=== PATIENT | female | born 1985 | race Caucasian/White ===

== ENCOUNTER 2016-08-01 05:51 | Inpatient (IN) | payer OTHER ==
[~2016-08-01] VITALS: Ht 165.1 cm; Wt 112.5 kg
[2016-08-01 06:02] VITALS: BP 135/96
--- NOTE | 2016-08-01 06:09 | Emergency Room Report ---
History of Present Illness General Chief Complaint: Chest Pain Source: Patient, EMS (RUBY JAVIER M.D.) Present Illness HPI This is a 31-year-old female with history of lupus and previous DVTs. She also has factor V Leiden deficiency. She presents with chief complaint of chest pain. Onset tonight. Also has short of breath. Denies any fever chills denies any nausea vomiting. She did have flulike illness about a week ago. It has some vomiting then. Pain is 10 out of 10. No radiation. No diaphoresis. She called 911 this given aspirin and nitroglycerin by EMS. No relief. She does take Lovenox when necessary when she traveled or when she has confirmed DVTs. (RUBY JAVIER M.D.) Allergies: Coded Allergies: METRONIDAZOLE (Verified Allergy, Unknown, 08/01/16) Uncoded Allergies: ALL ANTI VIRAL (Allergy, Unknown, 08/01/16) Patient History Past Medical History: see triage record, old chart reviewed Past Surgical History: other Pertinent Family History: none Social History: Denies: smoking Last Menstrual Period: 2 weeks ago Now: No Immunizations: other Reviewed Nursing Documentation: PMH: Agreed, PSxH: Agreed (RUBY JAVIER M.D.) Review of Systems Eye: Denies: blurred vision, eye pain ENT: Denies: ear pain, nose congestion, throat swelling Respiratory: Reports: shortness of breath, Denies: cough Cardiovascular: Reports: chest pain, Denies: palpitations Gastrointestinal: Denies: abdominal pain, diarrhea, nausea, vomiting Musculoskeletal: Denies: back pain, joint pain Skin: Denies: rash Neurological: Denies: headache, numbness Endocrine: Denies: increased thirst, increased urine Hematologic/Lymphatic: Denies: easy bruising All Other Systems: negative except mentioned in HPI (RUBY JAVIER M.D.) Physical Exam Vital Signs Date Time Temp Pulse Resp B/P Pulse Ox O2 Delivery O2 Flow Rate FiO2 08/01/16 05:52 97.5 93 16 135/96 100 Room Air vitals normal Sp02 EP Interpretation: reviewed, normal General Appearance: well appearing, no apparent distress, alert, obese Head: normocephalic, atraumatic Eyes: bilateral eye EOMI, bilateral eye PERRL ENT: hearing grossly normal, normal pharynx Neck: full range of motion, supple, no meningismus Respiratory: chest non-tender, lungs clear, normal breath sounds Cardiovascular #1: regular rate, rhythm, no murmur Gastrointestinal: normal bowel sounds, non tender, no mass, no organomegaly, no bruit, non-distended Musculoskeletal: back normal, gait/station normal, normal range of motion Neurologic: alert, oriented x3 Psychiatric: anxious Skin: warm/dry (RUBY JAVIER M.D.) Medical Decision Making Diagnostic Impression: Primary Impression: ACS (acute coronary syndrome) ER Course Patient presents with chest pain and shortness of breath. EKG is unremarkable. Because of her history of DVT and hypercoagulable state, will get a CT scan to rule out PE. I will sign this patient out to Dr. Kearney for final disposition. (RUBY JAVIER M.D.) ER Course Please refer to initial note for the history examined presentation Patient's complex with multiple differentials entertained Specifically given her lupus and, hypocoagulable state Consideration for vascular emergencies high CT chest was negative for pulmonary embolism Patient required morphine and Dilaudid for pain medication And at this time admitted for further inpatient care Labs Test 08/01/16 06:00 08/01/16 07:10 White Blood Count 7.4 K/UL (4.8-10.8) Red Blood Count 5.02 M/UL (4.20-5.40) Hemoglobin 13.6 G/DL (12.0-16.0) Hematocrit 42.1 % (37.0-47.0) Mean Corpuscular Volume 84 FL (80-99) Mean Corpuscular Hemoglobin 27.0 PG (27.0-31.0) Mean Corpuscular Hemoglobin Concent 32.2 G/DL (32.0-36.0) Red Cell Distribution Width 12.8 % (11.6-14.8) Platelet Count 256 K/UL (150-450) Mean Platelet Volume 6.5 FL (6.5-10.1) Neutrophils (%) (Auto) 55.3 % (45.0-75.0) Lymphocytes (%) (Auto) 33.5 % (20.0-45.0) Monocytes (%) (Auto) 4.5 % (1.0-10.0) Eosinophils (%) (Auto) 5.3 % (0.0-3.0) Basophils (%) (Auto) 1.5 % (0.0-2.0) Prothrombin Time 9.9 SEC (9.30-11.50) Prothromb Time International Ratio 1.0 (0.9-1.1) Activated Partial Thromboplast Time 26 SEC (23-33) Sodium Level 142 mEQ/L (135-145) Potassium Level 3.9 mEQ/L (3.4-4.9) Chloride Level 101 mEQ/L (98-107) Carbon Dioxide Level 26 mEQ/L (20-30) Anion Gap 15 (5-15) Blood Urea Nitrogen 14 mg/dL (7-23) Creatinine 0.8 mg/dL (0.5-0.9) Estimat Glomerular Filtration Rate > 60 mL/min (>60) Glucose Level 113 mg/dL (74-106) Calcium Level 8.9 mg/dL (8.6-10.2) Total Bilirubin 0.5 mg/dL (0.0-1.2) Aspartate Amino Transf (AST/SGOT) 30 U/L (5-40) Alanine Aminotransferase (ALT/SGPT) 25 U/L (3-33) Alkaline Phosphatase 71 U/L (35-104) Total Creatine Kinase 93 U/L (26-140) Creatine Kinase MB 1.8 ng/mL (< 3.8) Creatine Kinase MB Relative Index 1.9 Troponin I < 0.30 ng/mL (<=0.30) Total Protein 6.7 g/dL (6.6-8.7) Albumin 4.1 g/dL (3.5-5.2) Globulin 2.6 g/dL Albumin/Globulin Ratio 1.5 (1.0-2.7) Urine Color Pale yellow Urine Appearance Clear Urine pH 7 (4.5-8.0) Urine Specific [place] 1.005 (1.005-1.035) Urine Protein Negative (NEGATIVE) Urine Glucose (UA) Negative (NEGATIVE) Urine Ketones Negative (NEGATIVE) Urine Occult Blood Negative (NEGATIVE) Urine Nitrite Negative (NEGATIVE) Urine Bilirubin Negative (NEGATIVE) Urine Urobilinogen Normal MG/DL (0.0-1.0) Urine Leukocyte Esterase 1+ (NEGATIVE) Urine RBC 0-2 /HPF (0 - 2) Urine WBC 0-2 /HPF (0 - 2) Urine Squamous Epithelial Cells Occasional /LPF Urine Bacteria Occasional /HPF (NONE) Urine HCG, Qualitative Negative Urine Opiates Screen Negative (NEGATIVE) Urine Barbiturates Screen Negative (NEGATIVE) Phencyclidine (PCP) Screen Negative (NEGATIVE) Urine Amphetamines Screen Negative (NEGATIVE) Urine Benzodiazepines Screen Negative (NEGATIVE) Urine Cocaine Screen Negative (NEGATIVE) Urine Marijuana (THC) Screen Negative (NEGATIVE) (HAZEL KEARNEY.Diamond) EKG Diagnostic Results Rate: normal Rhythm: NSR ST Segments: no acute changes (RUBY JAVIER M.D.) Rate: normal Rhythm: NSR ST Segments: no acute changes (HAZEL KEARNEY D.O.) Rhythm Strip Diag. Results EP Interpretation: yes Rate: 90 Rhythm: NSR, no PVC's, no ectopy (RUBY JAVIER M.D.) EP Interpretation: yes Rate: 74 Rhythm: NSR, no PVC's, no ectopy (HAZEL KEARNEY D.O.) Chest X-Ray Diagnostic Results EP Interpretation: Yes Findings: no consolidation, no effusion, no pneumothorax, no acute cardiopulmonary disease Number of Views: 1 (RUBY JAVIER M.D.) EP Interpretation: Yes Findings: no consolidation, no effusion, no pneumothorax Number of Views: 1 (HAZEL KEARNEY D.O.) CT/MRI/US Diagnostic Results CT/MRI/US Diagnostic Results : Impression CTA chest: No acute disease (HAZEL KEARNEY.Diamond) Last Vital Signs Date Time Temp Pulse Resp B/P Pulse Ox O2 Delivery O2 Flow Rate FiO2 08/01/16 06:02 93 16 Room Air 08/01/16 06:02 97.5 135/96 100 Status: improved (RUBY JAVIER M.D.) Status: improved (HAZEL KEARNEY D.O.) Disposition: ADMITTED INPATIENT Condition: Serious RUBY JAVIER M.D. Aug 01, 2016 06:09 HAZEL KEARNEY D.O. Aug 01, 2016 08:00
[2016-08-01 06:16] LABS: BASOPHILS % (AUTO) 1.5 % (0.0-2.0); EOSINOPHILS % (AUTO) 5.3 % (0.0-3.0); LYMPHOCYTES % (AUTO) 33.5 % (20.0-45.0); MEAN CORPUSCULAR HGB CONC 32.2 G/DL (32.0-36.0); MEAN CORPUSCULAR VOLUME 84 FL (80-99); MEAN PLATELET VOLUME 6.5 FL (6.5-10.1); MONOCYTES % (AUTO) 4.5 % (1.0-10.0); NEUTROPHILS % (AUTO) 55.3 % (45.0-75.0); PLATELET COUNT 256 K/UL (150-450); RED BLOOD COUNT 5.02 M/UL (4.20-5.40); RED CELL DISTRIBUTION WIDTH 12.8 % (11.6-14.8); WHITE BLOOD COUNT 7.4 K/UL (4.8-10.8)
[2016-08-01] MEDS ORDERED: ALBUTEROL2.5 MG/3 M INH (06:17)
[2016-08-01] MEDS ORDERED: TRAMADOL HCL50 MG ORAL (06:17)
[2016-08-01] MEDS ORDERED: ZOFRAN4 M3 ORAL (06:17)
[2016-08-01] MEDS ORDERED: FOLIC ACID1 MG ORAL (06:17)
[2016-08-01] MEDS ORDERED: PLAQUENIL200 MG ORAL (06:17)
[2016-08-01] MEDS ORDERED: CYANOCOBAL1000 MCG/2 IM (06:17)
[2016-08-01] MEDS ORDERED: LAMICTAL25 MG ORAL (06:17)
[2016-08-01] MEDS ORDERED: METHOTREXATE2.5 MG PO (06:17)
[2016-08-01] MEDS ORDERED: ATIVAN0.5 MG ORAL (06:18)
[2016-08-01] MEDS ORDERED: FIORINAL 50-321 EACH PO (06:18)
[2016-08-01 06:33] LABS: PROTHROMBIN TIME 9.9 SEC (9.30-11.50)
[2016-08-01 06:41] LABS: ALANINE AMINOTRANSFERASE 25 U/L (3-33); ALBUMIN/GLOBULIN RATIO 1.5 (1.0-2.7); ANION GAP 15 (5-15); ASPARTATE AMINO TRANSFERASE 30 U/L (5-40); CALCIUM 8.9 mg/dL (8.6-10.2); CARBON DIOXIDE 26 mEQ/L (20-30); CHLORIDE 101 mEQ/L (98-107); CREATININE 0.8 mg/dL (0.5-0.9); GLOMERULAR FILTRATION RATE > 60 mL/min (>60); HEMOLYSIS 11; POTASSIUM 3.9 mEQ/L (3.4-4.9); SODIUM 142 mEQ/L (135-145); TOTAL PROTEIN 6.7 g/dL (6.6-8.7)
[2016-08-01 06:43] LABS: TROPONIN I < 0.30 ng/mL (<=0.30)
[2016-08-01] MEDS ORDERED: Morphine Sulfate 4mg/ml Inj IVP ONE (06:45)
[2016-08-01 06:52] LABS: CKMB 1.8 ng/mL (< 3.8)
[2016-08-01 07:19] LABS: APPEARANCE,URINE CLEAR; KETONES,URINE NEGATIVE (NEGATIVE); LEUKOCYTE ESTERASE ,URINE 1+ (NEGATIVE); NITRITE,URINE NEGATIVE (NEGATIVE); PH,URINE 7 (4.5-8.0); PROTEIN,URINE NEGATIVE (NEGATIVE); UROBILINOGEN,URINE NORMAL MG/DL (0.0-1.0)
[2016-08-01 07:27] VITALS: BP 137/94
[2016-08-01 07:27] LABS: BACTERIA,URINE OCCASIONAL /HPF; RBC,URINE 0-2 /HPF (0 - 2); SQUAMOUS EPITHELIAL CELL,UR OCCASIONAL /LPF (NONE/OCC); WBC,URINE 0-2 /HPF (0 - 2)
[2016-08-01] MEDS ORDERED: HYDROmorphone 1 MG, DiphenhydrAMINE 25 MG in NS 55 ML IVPB ONE (07:30)
[2016-08-01] MEDS ORDERED: D5W IVPB ONE (07:45)
[2016-08-01] MEDS ORDERED: DIPHENHYDRAMINE IVPB ONE (07:45)
[2016-08-01] MEDS ORDERED: HYDROMORPHONE IVPB ONE (07:45)
[2016-08-01] MEDS ORDERED: D5W 55 ML IV ONE (07:51)
[2016-08-01] MEDS ORDERED: DiphenhydrAMINE 50mg/ml Inj ONE (07:51)
[2016-08-01] MEDS ORDERED: HYDROmorphone 1mg/ml Carpuject ONE (07:51)
[2016-08-01] MEDS ORDERED: Enoxaparin 120 mg inj SUBQ SCH (09:00)
[2016-08-01] MEDS ORDERED: Hydromorphone 0.5mg/0.5ml inj IVP PRN (10:15)
[2016-08-01] MEDS ORDERED: HYDROmorphone 1mg/ml Carpuject IVP PRN (10:15)
[2016-08-01 10:18] VITALS: BP 120/75
--- NOTE | 2016-08-01 11:38 | History and Physical ---
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 Pain radiates to R chest and is associated with nausea; no diaphoresis. +pleurissy, and sx worse with deep inspiration. She called EMS, and received asa and nitro. In ED, pt received Dil and Morphine with partial relief. pain currently 5/10. Pt reports recent URI 3 w ago that was resolving as of last week. She also reports that she took a 2 and 1/2 hour flight on Jul.23. Most recent dx of DVT was last year, and pt took lovenox x 6 m. Repeat u/s of RUE showed chronic dvt with no change. Inventory Associate Dr. De Santiago told her that she would only need to take lovenox with flights or long car trips. Pt's last sz was a year ago. Allergies: Coded Allergies: METRONIDAZOLE (Verified Allergy, Unknown, 08/01/16) Uncoded Allergies: ALL ANTI VIRAL (Allergy, Unknown, 08/01/16) Medication History Scheduled Aspirin/Caffeine/Butalbital (Fiorinal 50-325-40 mg Capsule), 1 EA PO EVERY 8 HOURS, (Reported) Cyanocobalamin (Vitamin B-12) (Cyanocobalamin Injection), 1,000 MCG IM once a month, (Reported) Folic Acid* (Folic Acid*), 1 MG ORAL DAILY, (Reported) Hydroxychloroquine Sulfate* (Plaquenil*), 200 MG ORAL DAILY, (Reported) Lamotrigine* (Lamictal*), 25 MG ORAL DAILY, (Reported) Lorazepam* (Ativan*), 0.5 MG ORAL THREE TIMES A DAY, (Reported) Methotrexate Sodium* (Methotrexate*), 2.5 MG PO q saturday, (Reported) Scheduled PRN Albuterol Sulfate* (Albuterol Sulfate Hhn*), 3 ML INH DAILY PRN for Shortness of Breath, (Reported) Ondansetron* (Zofran*), 4 MG ORAL Q6H PRN for Nausea & Vomiting, (Reported) Tramadol Hcl* (Ultram*), 50 MG ORAL Q6H PRN for For Pain, (Reported) Patient History Healthcare decision maker Resuscitation status Advanced Directive on File Past Medical/Surgical History Past Medical/Surgical History: (1) No significant social history (2) kidney biopsy (3) H/O tubal ligation (4) Seizure disorder (5) SLE (systemic lupus erythematosus) (6) SLE (systemic lupus erythematosus related syndrome) Family History Family History: Patient reports no known family medical history. Social History Social History: (1) No significant social history Review of Systems Musculoskeletal: Reports: joint pain - LE All Other Systems: negative except mentioned in HPI Physical Exam General Appearance: no apparent distress, alert, obese Lines, tubes and drains: peripheral - R AC HEENT: normocephalic, atraumatic, anicteric, mucous membranes moist, PERRL, EOMI, pharynx normal, no JVD Neck: non-tender, supple Respiratory/Chest: lungs clear, normal breath sounds, no respiratory distress, no accessory muscle use Cardiovascular/Chest: normal peripheral pulses, normal rate, regular rhythm Abdomen: normal bowel sounds, non tender, soft, no mass Extremities: non-tender, normal inspection, other - R arm swelling/tightness Skin Exam: warm/dry, other - no erythema Neurologic: spinner concrete pipe II-XII grossly normal, no motor/sensory deficits, alert Musculoskeletal: normal muscle bulk Last 24 Hour Vital Signs Date Time Temp Pulse Resp B/P Pulse Ox O2 Delivery O2 Flow Rate FiO2 08/01/16 10:51 97.5 88 17 120/75 99 Room Air 08/01/16 10:41 97.5 08/01/16 10:18 97.5 88 17 120/75 99 Room Air 08/01/16 07:27 97.5 81 6 137/94 100 Room Air 08/01/16 07:23 97.5 08/01/16 06:02 93 16 Room Air 08/01/16 06:02 97.5 90 16 135/96 100 Room Air 08/01/16 05:52 97.5 93 16 135/96 100 Room Air Intake and Output 07/31/16 08/01/16 19:00 07:00 # Voids 1 Laboratory Tests Test 08/01/16 06:00 08/01/16 07:10 White Blood Count 7.4 K/UL (4.8-10.8) Red Blood Count 5.02 M/UL (4.20-5.40) Hemoglobin 13.6 G/DL (12.0-16.0) Hematocrit 42.1 % (37.0-47.0) Mean Corpuscular Volume 84 FL (80-99) Mean Corpuscular Hemoglobin 27.0 PG (27.0-31.0) Mean Corpuscular Hemoglobin Concent 32.2 G/DL (32.0-36.0) Red Cell Distribution Width 12.8 % (11.6-14.8) Platelet Count 256 K/UL (150-450) Mean Platelet Volume 6.5 FL (6.5-10.1) Neutrophils (%) (Auto) 55.3 % (45.0-75.0) Lymphocytes (%) (Auto) 33.5 % (20.0-45.0) Monocytes (%) (Auto) 4.5 % (1.0-10.0) Eosinophils (%) (Auto) 5.3 % (0.0-3.0) H Basophils (%) (Auto) 1.5 % (0.0-2.0) Prothrombin Time 9.9 SEC (9.30-11.50) Prothromb Time International Ratio 1.0 (0.9-1.1) Activated Partial Thromboplast Time 26 SEC (23-33) D-Dimer 732 ng/mL (<500) H Sodium Level 142 mEQ/L (135-145) Potassium Level 3.9 mEQ/L (3.4-4.9) Chloride Level 101 mEQ/L (98-107) Carbon Dioxide Level 26 mEQ/L (20-30) Anion Gap 15 (5-15) Blood Urea Nitrogen 14 mg/dL (7-23) Creatinine 0.8 mg/dL (0.5-0.9) Estimat Glomerular Filtration Rate > 60 mL/min (>60) Glucose Level 113 mg/dL (74-106) H Hemoglobin A1c Pending Calcium Level 8.9 mg/dL (8.6-10.2) Total Bilirubin 0.5 mg/dL (0.0-1.2) Aspartate Amino Transf (AST/SGOT) 30 U/L (5-40) Alanine Aminotransferase (ALT/SGPT) 25 U/L (3-33) Alkaline Phosphatase 71 U/L (35-104) Total Creatine Kinase 93 U/L (26-140) Creatine Kinase MB 1.8 ng/mL (< 3.8) Creatine Kinase MB Relative Index 1.9 Troponin I < 0.30 ng/mL (<=0.30) Total Protein 6.7 g/dL (6.6-8.7) Albumin 4.1 g/dL (3.5-5.2) Globulin 2.6 g/dL Albumin/Globulin Ratio 1.5 (1.0-2.7) Triglycerides Level Pending Cholesterol Level Pending LDL Cholesterol Pending HDL Cholesterol Pending Cholesterol/HDL Ratio Pending Urine Color Pale yellow Urine Appearance Clear Urine pH 7 (4.5-8.0) Urine Specific [place] 1.005 (1.005-1.035) Urine Protein Negative (NEGATIVE) Urine Glucose (UA) Negative (NEGATIVE) Urine Ketones Negative (NEGATIVE) Urine Occult Blood Negative (NEGATIVE) Urine Nitrite Negative (NEGATIVE) Urine Bilirubin Negative (NEGATIVE) Urine Urobilinogen Normal MG/DL (0.0-1.0) Urine Leukocyte Esterase 1+ (NEGATIVE) H Urine RBC 0-2 /HPF (0 - 2) Urine WBC 0-2 /HPF (0 - 2) Urine Squamous Epithelial Cells Occasional /LPF Urine Bacteria Occasional /HPF (NONE) Urine HCG, Qualitative Negative Urine Opiates Screen Negative (NEGATIVE) Urine Barbiturates Screen Negative (NEGATIVE) Phencyclidine (PCP) Screen Negative (NEGATIVE) Urine Amphetamines Screen Negative (NEGATIVE) Urine Benzodiazepines Screen Negative (NEGATIVE) Urine Cocaine Screen Negative (NEGATIVE) Urine Marijuana (THC) Screen Negative (NEGATIVE) Height (Feet): 5 Height (Inches): 5.00 Weight (Pounds): 248 Medications Current Medications Medications (Trade) Dose Ordered Sig/Hermelinda Route PRN Reason Start Time Stop Time Status Last Admin Dose Admin Acetaminophen (Tylenol) 650 mg Q4H PRN ORAL Mild Pain (Pain Scale 1-3) 08/01/16 10:15 08/31/16 10:14 UNV Aspirin (ASA) 81 mg DAILY ORAL 08/02/16 09:00 09/01/16 08:59 UNV Atorvastatin Calcium (Lipitor) 40 mg DAILY ORAL 08/01/16 11:15 08/31/16 11:14 UNV Dextrose (Dextrose 50%) STAT PRN IV Hypoglycemia 08/01/16 10:15 08/31/16 10:14 UNV Enoxaparin Sodium (Lovenox) 110 mg EVERY 12 HOURS SUBQ 08/01/16 09:00 08/31/16 08:59 08/01/16 09:05 Hydromorphone HCl (Dilaudid) 0.5 mg EVERY 4 HOURS PRN IVP For Pain moderate 4-6 08/01/16 10:15 08/08/16 10:14 UNV Hydromorphone HCl (Dilaudid) 1 mg EVERY 4 HOURS PRN IVP Severe Pain (Pain Scale 7-10) 08/01/16 10:15 08/08/16 10:14 UNV Ondansetron HCl (Zofran) 4 mg Q6H PRN IVP Nausea & Vomiting 08/01/16 10:15 08/31/16 10:14 UNV Assessment/Plan Problem List: (1) Chest pain ICD Codes: R07.9 - Chest pain, unspecified SNOMED: 47158833 Qualifiers: Qualified Codes: R07.1 - Chest pain on breathing (2) ACS (acute coronary syndrome) ICD Codes: I24.9 - Acute ischemic heart disease, unspecified SNOMED: 995496181 (3) VTE (venous thromboembolism) ICD Codes: I82.90 - Acute embolism and thrombosis of unspecified vein SNOMED: 668568779 (4) Seizure disorder ICD Codes: G40.909 - Epilepsy, unspecified, not intractable, without status epilepticus SNOMED: 379301509 (5) SLE (systemic lupus erythematosus) ICD Codes: M32.9 - Systemic lupus erythematosus, unspecified SNOMED: 62441452, 438073422 (6) SLE (systemic lupus erythematosus related syndrome) ICD Codes: M32.9 - Systemic lupus erythematosus, unspecified SNOMED: 904516363 (7) kidney biopsy Status: progressing Assessment/Plan pt will be admitted to [facility] obs for acs r/o Pt at higher risk of CVD with underlying SLE, however also has hypercoagulopathy CTA negative first trop neg; cont to trend x2 start therapeutic Lovenox, 110 mg BID SC Asa, statin RUE U/S Pain control, apap, tramadol and dil for breakthrough ctm vs A1C, Lipid panel c/s Cardiology, Dr. Luz c/s Hematology, Dr. Ashby cont anti sz and sle meds; hold MTX in light of recent URI, to be resumed by o/ p Isidro Walls M.D. Aug 01, 2016 11:38
[2016-08-01 11:46] LABS: CHOLESTEROL/HDL RATIO 4.5 (3.3-4.4); HEMOGLOBIN A1C 5.2 % (< 6.0)
[2016-08-01] MEDS ORDERED: traMADol 50mg tab ORAL PRN (12:00)
[2016-08-01 13:07] VITALS: BP 121/88
[2016-08-01 13:20] LABS: TROPONIN I < 0.30 ng/mL (<=0.30)
[2016-08-01 16:00] VITALS: BP 120/67
[2016-08-01 20:00] VITALS: BP 121/76
--- NOTE | 2016-08-01 20:01 | Consultation ---
Consult Note Consult Note Cardiology/ coverage for Dr Luz Full note dictated #[id number] IMMANUEL LEAL Aug 01, 2016 20:01
[2016-08-01] MEDS: Enoxaparin 120 mg inj SUBQ SCH (20:55)
[2016-08-02] MEDS ORDERED: Metoclopramide 10mg/10ml Liq NG SCH
[2016-08-02] MEDS: Metoclopramide 10mg/10ml Liq ORAL SCH ×4 (00:15→17:22)
[2016-08-02 00:24] VITALS: BP 113/80
--- NOTE | 2016-08-02 03:27 | Consultation ---
DATE OF CONSULTATION: CARDIOLOGY CONSULTATION This is a cardiology consult coverage for Dr. Luz. CONSULTING PHYSICIAN: Sandie Rodriguez M.D. REQUESTING PHYSICIAN: Linda Lanier M.D. REASON FOR CONSULTATION: Chest pain. HISTORY OF PRESENT ILLNESS: The patient is a 31-year-old white female with a history of lupus, seizures, and factor V Leiden deficiency, previous history of left lower extremity DVT at age 22 and right upper extremity DVT about one year ago treated in the past with Lovenox chronically until 2014. She was then placed again on Lovenox for 6 months when her DVT was diagnosed about a year ago, but is not currently on anticoagulation. She developed right upper back pain and chest pain over the past day. She states the pain is worse with deep inspiration. She has had mild dyspnea. She also notes tightness and swelling in the right upper extremity. She has no pain or swelling in the legs over baseline. She presented to the emergency room and is admitted for further treatment. PAST MEDICAL HISTORY: As noted above. MEDICATIONS: Aspirin 81 mg daily, Lipitor 40 mg daily, Lovenox 110 mg q.12 hours subcutaneously (started today), Lamictal 25 mg at bedtime, Plaquenil 200 mg twice daily, tramadol 50 mg every 6 hours as needed, Tylenol as needed, and Dilaudid as needed. ALLERGIES: Antiviral agents and metronidazole. SOCIAL HISTORY: The patient lives with her and daughter. She is a nonsmoker. Does not drink alcohol or use any drugs. FAMILY HISTORY: Positive for lupus in the patient's sister and factor V Leiden mutation in the patient's sister and mother. PHYSICAL EXAMINATION: VITAL SIGNS: Blood pressure is 120/67, pulse 78 and regular, respirations 18, pulse 64, and oxygen saturation 98% on room air. GENERAL: Alert, obese white female, in no acute distress. HEENT: Normocephalic and atraumatic. Pupils are equal, round, and reactive to light. Sclerae anicteric. Oral mucosa are moist. NECK: Supple. There is no jugular venous distention. No carotid bruits. LUNGS: Clear to auscultation bilaterally. Pleuritic chest pain noted with deep inspiration. HEART: Regular rate and rhythm. S1 and S2 with no murmurs or S3. ABDOMEN: Soft, nontender. No palpable mass. EXTREMITIES: There is mild edema and tenderness of the right upper arm, trace pedal and ankle edema bilaterally. Distal lower extremity pulses intact. DIAGNOSTIC DATA: EKG shows sinus rhythm, rate of 94 beats per minute. Rams[place] +30 degrees. Normal intervals. No ST-segment or T-wave changes. Chest x-ray is pending. LABORATORY DATA: Troponin less than 0.3. Sodium 142, potassium 3.9, BUN 14, and creatinine 0.8. Hemoglobin 13.6, white blood count 7400, and platelets 256,000. ASSESSMENT AND RECOMMENDATIONS: The patient is a 31-year-old woman with a history of lupus, seizure disorder, and factor V Leiden mutation with 2 previous episodes of deep venous thrombosis, not on chronic anticoagulation. She presents with pleuritic chest pain, dyspnea, and right upper extremity edema. Findings are consistent with deep venous thrombosis and possible pulmonary embolus. I would agree with empiric treatment with Lovenox 1 mg/kg q.12 hours and would also do a D-dimer as well as ventilation/perfusion scan to rule out deep venous thrombosis. Venous duplex of the arms and legs has been ordered to evaluate possible deep venous thrombosis. Her chest pain does not appear consistent with angina or acute coronary syndrome and troponin levels are negative. She will likely need long-term anticoagulation for her hypercoagulable state. Thank you for allowing me to see the patient in cardiology consultation. I will be happy to follow her with you. Sandie Rodriguez M.D. DR: KINGS JOB#: [id number] CC: Linda Lanier M.D.; Fax#: [phone]
[2016-08-02 04:12] VITALS: BP 108/59
[2016-08-02 08:15] VITALS: BP 134/78
[2016-08-02] MEDS: Enoxaparin 120 mg inj SUBQ SCH (08:17)
[2016-08-02 08:22] VITALS: BP 110/75
[2016-08-02 08:30] LABS: BASOPHILS % (AUTO) 0.7 % (0.0-2.0); EOSINOPHILS % (AUTO) 2.7 % (0.0-3.0); LYMPHOCYTES % (AUTO) 31.2 % (20.0-45.0); MEAN CORPUSCULAR HEMOGLOBIN 27.7 PG (27.0-31.0); MEAN CORPUSCULAR HGB CONC 33.7 G/DL (32.0-36.0); MEAN CORPUSCULAR VOLUME 82 FL (80-99); MEAN PLATELET VOLUME 7.2 FL (6.5-10.1); MONOCYTES % (AUTO) 5.8 % (1.0-10.0); NEUTROPHILS % (AUTO) 59.6 % (45.0-75.0); PLATELET COUNT 251 K/UL (150-450); WHITE BLOOD COUNT 6.6 K/UL (4.8-10.8)
[2016-08-02 08:57] LABS: ANION GAP 16 (5-15); CALCIUM 9.3 mg/dL (8.6-10.2); CARBON DIOXIDE 23 mEQ/L (20-30); CHLORIDE 101 mEQ/L (98-107); CREATININE 0.8 mg/dL (0.5-0.9); GLOMERULAR FILTRATION RATE > 60 mL/min (>60); HEMOLYSIS 5; POTASSIUM 3.6 mEQ/L (3.4-4.9); SODIUM 140 mEQ/L (135-145)
[2016-08-02 08:58] LABS: TROPONIN I < 0.30 ng/mL (<=0.30)
[2016-08-02] MEDS ORDERED: Aspirin Baby 81mg ORAL SCH (09:00)
[2016-08-02 11:55] VITALS: BP 127/79
--- NOTE | 2016-08-02 14:01 | Cardiology Progress Note ---
Assessment/Plan Status: stable, progressing Status Narrative Pleuritic CP and dyspnea in pt w/ hx of DVT R UE and L LE in the past, and SLE with factor V Leiden mutation. Symptoms are stable. She had n/v last pm w/ dilaudid, which has now resolved. Assessment/Plan Continue sc lovenox 1 mg/kg q 12 hrs. Suspect PE - V/q scan done this am, as well as UE and LE venous duplex - results are pending. She will likely require lifelong anticoagulation Subjective ROS Limited/Unobtainable: No Subjective Pt has persistent R sided pleuritic chest pain. No dyspnea + R arm swelling/ tightness Objective Last 24 Hour Vital Signs Date Time Temp Pulse Resp B/P Pulse Ox O2 Delivery O2 Flow Rate FiO2 08/02/16 13:46 84 08/02/16 12:00 80 08/02/16 11:55 97.0 83 18 127/79 98 Room Air 08/02/16 09:14 97.4 08/02/16 08:22 97.4 83 18 110/75 98 Room Air 08/02/16 08:00 80 08/02/16 04:12 98.4 65 18 108/59 94 Room Air 08/02/16 04:00 66 08/02/16 00:24 97.5 81 19 113/80 94 Room Air 08/02/16 00:00 62 08/01/16 20:00 78 08/01/16 20:00 95.9 85 18 121/76 95 Room Air 08/01/16 16:00 64 08/01/16 16:00 97.4 78 20 120/67 98 Room Air General Appearance: WD/WN, no apparent distress, alert EENT: PERRL/EOMI Neck: non-tender, no JVD Rhythm: NSR Cardiovascular: normal rate, regular rhythm, no gallop/murmur Respiratory/Chest: lungs clear, normal breath sounds Abdomen: normal bowel sounds, non tender, soft Extremities: normal range of motion, other - 1+ edema, tenderness of R upper arm Intake and Output 08/01/16 08/02/16 19:00 07:00 Intake Total 1175 ml Balance 1175 ml Intake Oral 120 ml IV Total 1055 ml # Voids 1 3 # Bowel Movements 1 Laboratory Tests Test 08/02/16 07:35 White Blood Count 6.6 K/UL (4.8-10.8) Red Blood Count 4.60 M/UL (4.20-5.40) Hemoglobin 12.8 G/DL (12.0-16.0) Hematocrit 37.8 % (37.0-47.0) Mean Corpuscular Volume 82 FL (80-99) Mean Corpuscular Hemoglobin 27.7 PG (27.0-31.0) Mean Corpuscular Hemoglobin Concent 33.7 G/DL (32.0-36.0) Red Cell Distribution Width 13.0 % (11.6-14.8) Platelet Count 251 K/UL (150-450) Mean Platelet Volume 7.2 FL (6.5-10.1) Neutrophils (%) (Auto) 59.6 % (45.0-75.0) Lymphocytes (%) (Auto) 31.2 % (20.0-45.0) Monocytes (%) (Auto) 5.8 % (1.0-10.0) Eosinophils (%) (Auto) 2.7 % (0.0-3.0) Basophils (%) (Auto) 0.7 % (0.0-2.0) Sodium Level 140 mEQ/L (135-145) Potassium Level 3.6 mEQ/L (3.4-4.9) Chloride Level 101 mEQ/L (98-107) Carbon Dioxide Level 23 mEQ/L (20-30) Anion Gap 16 (5-15) H Blood Urea Nitrogen 11 mg/dL (7-23) Creatinine 0.8 mg/dL (0.5-0.9) Estimat Glomerular Filtration Rate > 60 mL/min (>60) Glucose Level 85 mg/dL (74-106) Calcium Level 9.3 mg/dL (8.6-10.2) Troponin I < 0.30 ng/mL (<=0.30) IMMANUEL LEAL Aug 02, 2016 14:01
[2016-08-02 16:00] VITALS: BP 122/86
--- NOTE | 2016-08-02 17:39 | Discharge Summary ---
Discharge Summary Hospital Course Date of Admission Aug 01, 2016 at 07:05 Date of Discharge 08/02/16 Admitting Diagnosis CHEST PAIN HPI Lizeth Lemos is a 31 year old female who was admitted on Aug 01, 2016 at 07:05 for Chest Pain Consultations Cardiology Hematology Hospital Course Chest pain was ruled out for ACS; may be 2/2 micro VTE; will have pt cont home Lovenox daily until f/u with o/p Boiler Control Technician. pt was admitted to tele obs for acs r/o; trop neg x3 Pt at higher risk of CVD with underlying SLE, however also has hypercoagulopathy CTA negative received therapeutic Lovenox, 110 mg BID SC Asa, statin RUE and b/l LE U/S Pain control, apap, tramadol and dil for breakthrough A1C, Lipid panel c/s Cardiology, Dr. Luz c/s Hematology, Dr. Ashby cont anti sz and sle meds; hold MTX in light of recent URI, to be resumed by o/ p Rheum Discharge Condition Upon Discharge: stable Discharge Disposition Patient was discharged to home Discharge Diagnoses: (1) Chest pain (2) SLE (systemic lupus erythematosus) Isidro Hargrove M.D. Aug 02, 2016 17:39
[2016-08-02] MEDS ORDERED: ENOXAPARIN120 MG/0.8 SUBQ (17:42)
--- NOTE | 2016-08-02 18:33 | General Progress Note ---
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 # Shortness of breath - rule out acs and PE (CTA was negative) # Seizure disorder - with epilepsy # SLE is on plaquenil # Elevated D-dimer Recommendations: - Duplex of upper and lower extremities ordered - Continue Lovenox sq on prn basis as outpatient - Asa, statin per cardiology - Pain control, apap, tramadol and dil for breakthrough - Followup on cardiology recs - DVT ppx with SCDs - GI ppx as needed - Staff Sincerely, Raman Ashby MD Subjective Constitutional: Reports: no symptoms HEENT: Reports: no symptoms Cardiovascular: Reports: no symptoms Respiratory: Reports: no symptoms Gastrointestinal/Abdominal: Reports: poor appetite Genitourinary: Reports: no symptoms Neurologic/Psychiatric: Reports: no symptoms Endocrine: Reports: no symptoms Hematologic/Lymphatic: Reports: anemia Allergies: Coded Allergies: METRONIDAZOLE (Verified Allergy, Unknown, 08/01/16) Uncoded Allergies: ALL ANTI VIRAL (Allergy, Unknown, 08/01/16) Subjective stable, no complaints besides occasional chest pain Objective Last 24 Hour Vital Signs Date Time Temp Pulse Resp B/P Pulse Ox O2 Delivery O2 Flow Rate FiO2 08/02/16 16:00 97.5 95 20 122/86 96 Room Air 08/02/16 15:22 97.0 08/02/16 13:46 84 08/02/16 12:00 80 08/02/16 11:55 97.0 83 18 127/79 98 Room Air 08/02/16 08:22 97.4 83 18 110/75 98 Room Air 08/02/16 08:00 80 08/02/16 04:12 98.4 65 18 108/59 94 Room Air 08/02/16 04:00 66 08/02/16 00:24 97.5 81 19 113/80 94 Room Air 08/02/16 00:00 62 08/01/16 20:00 78 08/01/16 20:00 95.9 85 18 121/76 95 Room Air Intake and Output 08/01/16 08/02/16 19:00 07:00 Intake Total 1175 ml Balance 1175 ml Intake Oral 120 ml IV Total 1055 ml # Voids 1 3 # Bowel Movements 1 Laboratory Tests 08/02/16 07:35: White Blood Count 6.6, Red Blood Count 4.60, Hemoglobin 12.8, Hematocrit 37.8, Mean Corpuscular Volume 82, Mean Corpuscular Hemoglobin 27.7, Mean Corpuscular Hemoglobin Concent 33.7, Red Cell Distribution Width 13.0, Platelet Count 251, Mean Platelet Volume 7.2, Neutrophils (%) (Auto) 59.6, Lymphocytes (%) (Auto) 31.2, Monocytes (%) (Auto) 5.8, Eosinophils (%) (Auto) 2.7, Basophils (%) (Auto ) 0.7, Sodium Level 140, Potassium Level 3.6, Chloride Level 101, Carbon Dioxide Level 23, Anion Gap 16H, Blood Urea Nitrogen 11, Creatinine 0.8, Estimat Glomerular Filtration Rate > 60, Glucose Level 85, Calcium Level 9.3, Troponin I < 0.30 Height (Feet): 5 Height (Inches): 5.00 Weight (Pounds): 248 General Appearance: WD/WN EENT: PERRL/EOMI Neck: normal alignment Cardiovascular: regular rhythm Respiratory/Chest: lungs clear Abdomen: non tender Extremities: non-tender Edema: no edema noted Leg (L), no edema noted Leg (R) Edema: mild edema Neurologic: alert Skin: warm/dry Raman Ashby Aug 02, 2016 18:33
[2016-08-02] MEDS ORDERED: NS 55ml IV ONE (19:20)
--- NOTE | 2016-08-04 17:06 | Diagnostic Imaging Report ---
APPROVED REPORT CPT Code: 10409 Present Symptoms Comments: R/O DVT BILATERAL UPPER EXTREMITY: Imaging reveals patency of the internal jugular, subclavian, axillary and brachial veins. The cephalic and basilic veins are also patent. Doppler indicates normal spontaneous flow within these venous segments, bilaterally.
--- NOTE | 2016-08-04 17:06 | Diagnostic Imaging Report ---
APPROVED REPORT CPT Code: 37121 Present Symptoms Comments: Pain BILATERAL: Imaging reveals a patent deep venous system bilaterally. There is no evidence of thrombus within the femoral, popliteal or tibial segments. The greater saphenous veins are also within normal limits. Doppler indicates normal spontaneous flow within these segments.
--- NOTE | 2016-08-05 09:39 | Diagnostic Imaging Report ---
Indication: Chest pain Technique: A ventilation/perfusion scan was performed. Ventilation was performed utilizing 41.7 mCi of technetium 99m DTPA. Wash-in, equilibrium, and washout imaging obtained in a posterior projection. Perfusion was performed with 5.5 mCi of technetium 99m-MAA injected intravenously. Lungs were then projected in 8 different projections. Findings: Ventilation is homogeneous. No defects are identified. Perfusion is homogeneous. No defects are identified. Impression: Normal VQ scan
--- NOTE | 2016-08-05 11:45 | Diagnostic Imaging Report ---
Indication: Chest Pain Comparison: None A single view chest radiograph was obtained. Findings: Cardiomediastinal appearance is within normal limits for age. Pulmonary vascularity is appropriate. The diaphragmatic contour is smooth and costophrenic angles are sharp. No pleural effusions are identified. The bones are unremarkable. Impression: No acute findings
--- NOTE | 2016-08-05 11:45 | Diagnostic Imaging Report ---
Indication: Chest pain Technique: Continuous helical transaxial imaging of the chest was obtained from the thoracic inlet to the upper abdomen during rapid intravenous contrast administration. Arterial phase of enhancement obtained. Coronal 2-D reformats were also obtained and maximum intensity projection images in multiple planes. Study obtained in a Siemens sensation [address] Total Dose length Product (DLP): [address] Dose Index Volume (CTDIvol): 13, 13, 39 mGy Comparison: None Findings: The pulmonary artery is well opacified and shows no filling defects. The lungs are clear. There is no adenopathy, pleural or pericardial effusions are identified. The aortic dissection or aneurysm identified within the chest. Visualized part of the upper abdomen is unremarkable. Impression: Negative CTA of the chest The CT scanner at [facility] is accredited by the [employer] and the scans are performed using protocols designed to limit radiation exposure to as low as reasonably achievable to attain images of sufficient resolution adequate for diagnostic evaluation.
--- NOTE | 2016-08-28 15:02 | Cardiology Report ---
APPROVED REPORT EKG Measurement Heart [id number] Normal sinus rhythm Septal infarct, age undetermined Abnormal ECG
== END 2016-08-02 19:21 | disposition home or self-care (01) | DRG 204 ==
LOC: ENRESERVDT → ENRESERVTM → ENRESERV → EDBD 05:51 → EMR 06:33 → 2E 07:05 → EDBEDREQ 09:37
DX: R07.81 Pleurodynia (principal); D68.51 Activated protein C resistance; D68.59 Other primary thrombophilia; M32.9 Systemic lupus erythematosus, unspecified; G40.909 Epilepsy, unspecified, not intractable, without status epilepticus; Z86.718 Personal history of other venous thrombosis and embolism; Z79.82 Long term (current) use of aspirin
CPT/HCPCS: 36415; 71010; 71275; 78579; 78580; 80048; 80053; 80061; 80300; 81003; 81025; 82550; 82553; 83036; 84484; 85025; 85379; 85610; 85730; 93005; 93970; A9503; J2405